=== PATIENT | male | born 1955 | race Hispanic/Latino ===

== ENCOUNTER 2020-07-21 10:34 | Emergency (ER) | payer BC, OTHER ==
[~2020-07-21] VITALS: Ht 165.1 cm; Wt 95.3 kg
[~2020-07-21 10:34] MED LIST: METOPROLOL TART25 MG PO
[2020-07-21] MEDS ORDERED: HYDROCODONE/APAP 5MG-325MG TAB PO NR (11:00)
[2020-07-21] MEDS ORDERED: DIAZEPAM 2 MG TAB PO NR (11:00)
--- NOTE | 2020-07-21 11:07 | Emergency Department Note ---
History of Present Illnes History of Present Illness Chief Complaint: General Medicine Complaints History of Present Illness This is a 64 year old male X 2 WEEK INTERMITTENT THROBBING/TINGLING PAIN TO BACK OF HEAD ALONG WITH HEADACHE. RADIATES TO RIGHT SIDE OF NECK/SHOULDER. LAST APPROX 20 MIN. DENIES ANY TRAUMA HOT COMPRESSES HELP. MADE WORSE WITH TURNING HEAD FROM SIDE TO SIDE. PATIENT SEEN BY AT [facility]. X-RAY DONE, NORMAL. REQUESTED CT SCAN AND THEY WOULD NOT DO IT. GIVEN CYCLOBENZAPRINE 5 MG AND MELOXICAM 15 MG. PATIENT EVALUATED IN TRIAGE BY DR. HUDDLESTON. NEUROLOGICALLY INTACT. 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 Any updates have been documented here. Past Medical History Recent Fever: No Clinical Suspicion of Infectio: No New/Unexplained Change in Ment: No Past Medical History: Hypertension Other Surgery: KNEE SURGERY Social History Smoking Cessation: Never Smoker Counseling Performed: No Alcohol Use: None Any Illegal Drug Use: No TB Exposure/Symptoms: No Physically hurt or threatened: No Family History Family history of heart diseas: No Other Any Pre-Existing Lines (PICC,: No Review of Systems Review of Systems Constitutional: Reports no symptoms EENTM: Reports no symptoms Cardiovascular: Reports no symptoms Respiratory: Reports no symptoms Gastrointestinal: Reports no symptoms Genitourinary: Reports no symptoms Musculoskeletal: Reports as per HPI, Reports muscle stiffness, Reports neck pain Integumentary: Reports no symptoms Neurological: Reports as per HPI, Reports headache Psychological: Reports no symptoms Endocrine: Reports no symptoms Hematological/Lymphatic: Reports no symptoms Review of other systems: All other systems negative Physical Exam Related Data Allergies: Coded Allergies: No Known Allergies (Unverified , 07/21/20) Triage Vital Signs Vital Signs Date Time Temp Pulse Resp B/P (MAP) Pulse Ox O2 Delivery O2 Flow Rate FiO2 07/21/20 10:37 98.1 67 18 195/89 97 Room Air Vital signs reviewed: Yes Physical Exam CONSTITUTIONAL Constitutional: Present well-developed, Present well-nourished HENT HENT: Present normocephalic, Present atraumatic, Present oropharynx clear/moist, Present nose normal HENT L/R: Present left ext ear normal, Present right ext ear normal EYES Eyes: Reports PERRL, Reports conjunctivae normal NECK Neck: Present ROM normal, Present other (MUSCLE SPASM/TENDERNESS OF RIGHT TRAPEZEUS MUSCLE INCLUDING AT INSERTION AT RIGHT OCCIPUT) PULMONARY Pulmonary: Present effort normal, Present breath sounds normal CARDIOVASCULAR Cardiovascular: Present regular rhythm, Present heart sounds normal, Present capillary refill normal, Present normal rate GASTROINTESTINAL Abdominal: Present soft, Present nontender, Present bowel sounds normal GENITOURINARY Genitourinary: Present exam deferred SKIN Skin: Present warm, Present dry MUSCULOSKELETAL Musculoskeletal: Present ROM normal NEUROLOGICAL Neurological: Present alert, Present oriented x 3, Present DTRs normal, Present no gross motor or sensory deficits; Absent cranial nerve deficit, Absent sensory deficit, Absent abnormal gait, Absent weakness PSYCHOLOGICAL Psychological: Present mood/affect normal, Present judgement normal Results Imaging Imaging results reviewed: Yes Impressions Procedure: [id number] CT/CT BRAIN WO Exam Date: 07/21/20 Exam Time: 1126 REPORT STATUS: Draft History: 64-year-old male with headaches x2-3 weeks, radiates to right side of neck/shoulder, last approximately 20 minutes, denies trauma, elevated blood pressure Comparison studies: None Technique: Axial images were obtained from the skull base to the vertex. Coronal and sagittal reconstructions obtained from the axial data. Dose modulation, iterative reconstruction, and/or weight based adjustment of the mA/kV was utilized to reduce the radiation dose to as low as reasonably achievable. Intravenous contrast: None Findings: Scalp/skull: No abnormalities. No fractures, blastic or lytic lesions. Extra-axial spaces: No masses. No fluid collections. Brain sulci: Appropriate for age. Ventricles: Normal in size and configuration. No hydrocephalus. Parenchyma: Scattered hypodensities in the supratentorial white matter are small vessel ischemic changes. Otherwise no abnormal densities. No masses, hemorrhage, acute or chronic cortical vascular insults. Sellar/suprasellar region: No abnormalities Craniocervical junction: Patent foramen magnum. No Chiari one malformation. Incidental findings: Moderate paranasal sinus mucosal thickening of the ethmoid and sphenoid sinuses bilaterally with inspissated secretions of the left sphenoid sinus. IMPRESSION: 1. No acute intracranial abnormalities. 2. Moderate paranasal sinus disease with inspissated secretions in the left sphenoid sinus. No air-fluid levels to suggest acute sinusitis. Chronic findings: * Mild chronic microvascular ischemic changes. Dictated By: TRISTEN BELTRAN DO Assessment & Plan Medical Decision Making MDM PT C/O HEADACHE AND RIGHT NECK PAIN. PE C/W TRAPEZIUS MUSCLE SPASM BUT PT WANTS CT - CHECK CT BRAIN R/O CEREBRAL BLEED, MASS Reassessment Reassessment DC HOME, VALIUM 5 MG TID PRN, NO OPERATING MACHINERY/DRIVING WHILE TAKING, WARM HEAT COMPRESSES Assessment & Plan Final Impression: (1) Muscle spasm Depart Disposition: HOME, SELF-CARE Last Vital Signs Date Time Temp Pulse Resp B/P (MAP) Pulse Ox O2 Delivery O2 Flow Rate FiO2 07/21/20 10:37 98.1 67 18 195/89 97 Room Air Home Meds Reported Medications Metoprolol Tartrate (METOPROLOL TARTRATE) 25 Mg Tablet, 25 MG PO BID, TAB 05/29/16 Medications in the ED Acetaminophen/ Hydrocodone Bitart 1 ea ONCE ONCE PO ; Start 07/21/20 at 11:00; Stop 07/21/20 at 11:01; Status UNV Diazepam 5 mg ONCE ONCE PO ; Start 07/21/20 at 11:00; Stop 07/21/20 at 11:01; Status UNV CHASITY HUDDLESTON MD Jul 21, 2020 11:07
--- NOTE | 2020-07-21 11:51 | Diagnostic Imaging Report ---
History: 64-year-old male with headaches x2-3 weeks, radiates to right side of neck/shoulder, last approximately 20 minutes, denies trauma, elevated blood pressure Comparison studies: None Technique: Axial images were obtained from the skull base to the vertex. Coronal and sagittal reconstructions obtained from the axial data. Dose modulation, iterative reconstruction, and/or weight based adjustment of the mA/kV was utilized to reduce the radiation dose to as low as reasonably achievable. Intravenous contrast: None Findings: Scalp/skull: No abnormalities. No fractures, blastic or lytic lesions. Extra-axial spaces: No masses. No fluid collections. Brain sulci: Mildly prominent. Ventricles: Normal in size and configuration. No hydrocephalus. Parenchyma: A few scattered hypodensities in the supratentorial white matter are nonspecific but are most compatible with small vessel ischemic changes. No masses, acute hemorrhage, acute or chronic cortical vascular insults. Sellar/suprasellar region: No abnormalities Craniocervical junction: Patent foramen magnum. No Chiari one malformation. Included paranasal sinuses: Scattered mucosal thickening throughout the paranasal sinuses which are partially opacified. The partially opacified left sphenoid sinus contains nonspecific secretions. IMPRESSION: 1. No acute intracranial abnormalities. 2. Mild chronic microvascular ischemic changes. 3. Nonspecific inflammatory changes in the paranasal sinuses. Signed by: Dr. Jeronimo Alcantara M.D. on 07/21/2020 12:53 PM
[2020-07-21 12:22] VITALS: BP 155/72
--- OUTSIDE RECORDS SUMMARY | 2020-07-26 18:20 | XMS REPORT | Clinical Summary ---
Author Author [facility] Organization [facility] Address Unknown Phone Unavailable Care Team Providers Care Wigs Salesperson Name Role Phone Asked, No Pcp PCP Unavailable Allergies No Known Active Allergies Medications End Date Status Medication Sig Dispensed Refills Start Date 07/24/2019 fluticasone propionate 1 spray (50 16 g 0 (FLONASE) 50 mcg total) by 9 mcg/actuation nasal spray Each Nare route daily for 14 days. 08/09/2019 sodium chloride (OCEAN 1 spray into 15 mL 12 NASAL) 0.65 % nasal spray each nostril 9 as needed for congestion or rhinitis for up to 30 days. 08/09/2019 cetirizine (ZyrTEC) 10 MG Take 1 tablet 30 tablet 0 tablet (10 mg total) 9 by mouth daily for 30 days. Active Problems Not on file Surgical History Surgery Date Site/Laterality Comments APPENDECTOMY REPLACEMENT TOTAL KNEE Right UMBILICAL HERNIA REPAIR Medical History Medical History Date Comments Hypertension Social History Date Tobacco Use Types Packs/Day Years Used Never Smoker Smokeless Tobacco: Never Used Drinks/Week oz/Week Comments Alcohol Use Not Currently Sex Assigned at Date Recorded Not on file Last Filed Vital Signs Not on file Plan of Treatment Health Maintenance Due Date Last Done Comments COLONOSCOPY SCREENING 2006 SHINGLES VACCINES (#1) 2006 INFLUENZA VACCINE 04/21/2020 Results Not on fileafter 07/21/2019 Insurance Type Payer Benefit Subscriber ID Effective Phone Address Plan / Dates Group PPO BCBS BCBS OUT [id number] 2018- OF STATE Present Advance Directives For more information, please contact: [phone] Patient Medical Affairs Specialist Explanation Type Date Recorded Advance Directives, 07/10/2019 12:03 PM Living Will and Medical Power of Physician Advisor
--- OUTSIDE RECORDS SUMMARY | 2020-07-26 18:20 | XMS REPORT | Continuity of Care Document ---
Author Author [facility] Organization [facility] Address [address] [place] [address] Phone Unavailable Care Team Providers Care Wire Fence Erector Name Role Phone Asked, Pcp No PCP Unavailable SWEET, A LAIRD Attphys Unavailable WINGKUN, STANISLAV-EILEEN Attphys Unavailable MARCANTEL, MISTY Attphys Unavailable Payers Payer Name Policy Type Policy Number Effective Date Expiration Date S ource Problems This patient has no known problems. Allergies, Adverse Reactions, Alerts Allergy Name Allergy Type Status Severity Reaction(s) Onset Date Inacti ve Date Treating Clinician Comments Source No Known Allergies DA Active U 2019-07-12 00:[facility] Social History Social Habit Start Date Stop Date Quantity Comments Source Sex Assigned At Akin maddoxstanton Vu Tobacco use and exposure 2019-07-10 00:00:00 2019-07-10 00:00:00 Neelam molina used Ramez Vu Alcohol intake 2019-07-10 00:00:00 2019-07-10 00:00:00 Ex-drinker (fi nding) Ramez Vu Smoking Status Start Date Stop Date Source Never smoker Ramez kim Medications Ordered Medication Name Filled Medication Name Start Date Stop Da te Current Medication? Ordering Clinician Indication Dosage Frequency Signature (SIG) Comments Components Source sodium chloride (OCEAN NASAL) 0.65 % nasal spray 2019-07-10 00:00:00 2019-08-09 23:59:00 No 1{spray} 1 spr ay into each nostril as needed for congestion or rhinitis for up to 30 days. Ramez Vu cetirizine (ZyrTEC) 10 MG tablet 2019-07-10 00:00:00 2019-07 23:59:00 No 10mg QD Take 1 tablet (10 mg total) by mouth daily for 30 days. Ramez Vu fluticasone propionate (FLONASE) 50 mcg/actuation nasal spra y 2019-07-10 00:00:00 2019-07-24 23:59:00 No 50ug QD 1 spray (50 mcg total) by Each Nare route daily for 14 days. Ramez Cheney Procedures This patient has no known procedures. Plan of Care Planned Activity Planned Date Details Comments Source Future Scheduled Test 2020-04-21 00:00:00 INFLUENZA VACCINE [code = INFLUENZA VACCINE] Ramez Vu Future Scheduled Test 2006 00:00:00 COLONOSCOPY SCREEN ING [code = COLONOSCOPY SCREENING] Ramez Vu Future Scheduled Test 2006 00:00:00 SHINGLES VACCINES (#1) [code = SHINGLES VACCINES (#1)] Ramez Vu Encounters Start Date/Time End Date/Time Encounter Type Admission Type [facility] Care Department Encounter ID Source 2019-07-10 00:00:00 2019-07-10 00:00:00 Emergency [facility] [id number] Ramez Vu 2019-07-10 00:00:00 2019-07-10 00:00:00 Emergency [facility] [id number] Ramez Vu Results Test Description Test Time Test Comments Results Result Comments Source CT BRAIN WO 2020-07-21 11:44:00 [facility] : 1955 Sex: M [facility] [address] [address] Patient Name: CE MERCHANT MR #: [id number] : 1955 Age/Sex: 64/M Req #: [id number] Adm Physician: Ordered by: CHASITY HUDDLESTON MD Report #: [id number] Location: ER Room/Bed: Procedure: [id number] CT/CT BRAIN WO Exam Date: 07/21/20 Exam Time: 1126 REPORT STATUS: Signed History: 64-year-old male with headaches x2-3 weeks, radiates to right side of neck/shoulder, last approximately 20 minutes, denies trauma, elevated blood pressure Comparison studies: None Technique: Axial images were obtained from the skull base to the vertex. Coronal and sagittal reconstructions obtained from the axial data. Dose modulation, iterative reconstruction, and/or weight based adjustment of the mA/kV was utilized to reduce the radiation dose to as low as reasonably achievable. Intravenous contrast: None Findings: Scalp/skull: No abnormalities. No fractures, blastic or lytic lesions. Extra-axial spaces: No masses. No fluid collections. Brain sulci: Mildly prominent. Ventricles: Normal in size and configuration. No hydrocephalus. Parenchyma: A few scattered hypodensities in the supratentorial white matter are nonspecific but are most compatible with small vessel ischemic changes. No masses, acute hemorrhage, acute or chronic cortical vascular insults. Sellar/suprasellar region: No abnormalities Craniocervical junction: Patent foramen magnum. No Chiari one malformation. Included paranasal sinuses: Scattered mucosal thickening throughout the paranasal sinuses which are partially opacified. The partially opacified left sphenoid sinus contains nonspecific secretions. IMPRESSION: 1. No acute intracranial abnormalities. 2. Mild chronic microvascular ischemic changes. 3. Nonspecific inflammatory changes in the paranasal sinuses. Signed by: Dr. Sachin Alcantara M.D. on 07/21/2020 12:53 PM Dictated By: SACHIN ALCANTARA MD 52 Transcribed By: JULIÁN on 07/21/201252 COPY TO: CHASITY HUDDLESTON MD BASIC METABOLIC PANEL 2019-07-15 08:10:00 Test Item SODIUM (test code = NA) 138 mEq/L 134-147 N POTASSIUM (test code = K) 3.6 mEq/L 3.4-5.0 N CHLORIDE (test code = CL) 105 mEq/L 100-108 N CARBON DIOXIDE (test code = CO2) 25 mEq/L 21-33 N ANION GAP (test code = GAP) 12 0-20 N GLUCOSE (test code = GLU) 98 mg/dL 70-110 N BLOOD UREA NITROGEN (test code = BUN) 11 mg/dL 7-18 GLOMERULAR FILTRATION RATE (test code = GFR) 114.3 80-90 H Units of measure = ml/min/1.73 m2 CREATININE (test code = CREAT) 0.7 mg/dL 0.6-1.3 N CALCIUM (test code = CA) 8.0 mg/dL 8.0-10.5 N CBC W/AUTO [id number] 08:06:00* Test Item Value Reference Range Interpretation Comments WHITE BLOOD CELL (test code = WBC) 16.76 x10 3/uL 4.5-11.0 H RED BLOOD CELL (test code = RBC) 3.85 x10 6/uL 4.00-5.60 L HEMOGLOBIN (test code = HGB) 11.2 g/dL 12.5-16.9 L HEMATOCRIT (test code = HCT) 34.8 % 37.5-50.7 L MEAN CELL VOLUME (test code = MCV) 90.4 fL 81.0-99.0 N MEAN CELL HGB (test code = MCH) 29.1 pg 27.0-33.0 N MEAN CELL HGB CONCETRATION (test code = MCHC) 32.2 g/dL 33.0-37. 0 L RED CELL DISTRIBUTION WIDTH CV (test code = RDW) 14.6 % 11.5- 14.5 H RED CELL DISTRIBUTION WIDTH SD (test code = RDW-SD) 49.1 fL 37 .0-54.0 N PLATELET COUNT (test code = PLT) 202 x10 3/uL 150-400 N MEAN PLATELET VOLUME (test code = MPV) 12.0 fL 7.0-9.0 H NEUTROPHIL % (test code = NT%) 79.4 % 56.0-77.0 H IMMATURE GRANULOCYTE % (test code = IG%) 1.3 % 0.0-2.0 N LYMPHOCYTE % (test code = LY%) 10.4 % 14.0-32.0 L MONOCYTE % (test code = MO%) 7.5 % 4.8-9.0 N EOSINOPHIL % (test code = EO%) 1.0 % 0.3-3.7 N BASOPHIL % (test code = BA%) 0.4 % 0.0-2.0 N NUCLEATED RBC % (test code = NRBC%) 0.0 % 0-0 N NEUTROPHIL # (test code = NT#) 13.32 x10 3/uL 2.0-7.6 H IMMATURE GRANULOCYTE # (test code = IG#) 0.21 x10 3/uL 0.00-0.03 H LYMPHOCYTE # (test code = LY#) 1.75 x10 3/uL 1.0-3.8 N MONOCYTE # (test code = MO#) 1.25 x10 3/uL 0.1-0.8 H EOSINOPHIL # (test code = EO#) 0.17 x10 3/uL 0.0-0.2 N BASOPHIL # (test code = BA#) 0.06 x10 3/uL 0.0-0.2 N NUCLEATED RBC # (test code = NRBC#) 0.00 x10 3/uL 0.0-0.1 N MANUAL DIFF REQUIRED (test code = MDIFF) NO CBC W/AUTO [id number] 07:53:00* Test Item Value Reference Range Interpretation Comments WHITE BLOOD CELL (test code = WBC) 17.10 x10 3/uL 4.5-11.0 H RED BLOOD CELL (test code = RBC) 3.84 x10 6/uL 4.00-5.60 L HEMOGLOBIN (test code = HGB) 11.3 g/dL 12.5-16.9 L HEMATOCRIT (test code = HCT) 35.1 % 37.5-50.7 L MEAN CELL VOLUME (test code = MCV) 91.4 fL 81.0-99.0 N MEAN CELL HGB (test code = MCH) 29.4 pg 27.0-33.0 N MEAN CELL HGB CONCETRATION (test code = MCHC) 32.2 g/dL 33.0-37. 0 L RED CELL DISTRIBUTION WIDTH CV (test code = RDW) 14.5 % 11.5- 14.5 N RED CELL DISTRIBUTION WIDTH SD (test code = RDW-SD) 48.3 fL 37 .0-54.0 N PLATELET COUNT (test code = PLT) 183 x10 3/uL 150-400 N MEAN PLATELET VOLUME (test code = MPV) 11.7 fL 7.0-9.0 H NEUTROPHIL % (test code = NT%) 77.7 % 56.0-77.0 H IMMATURE GRANULOCYTE % (test code = IG%) 0.6 % 0.0-2.0 N LYMPHOCYTE % (test code = LY%) 8.5 % 14.0-32.0 L MONOCYTE % (test code = MO%) 12.5 % 4.8-9.0 H EOSINOPHIL % (test code = EO%) 0.4 % 0.3-3.7 N BASOPHIL % (test code = BA%) 0.3 % 0.0-2.0 N NUCLEATED RBC % (test code = NRBC%) 0.0 % 0-0 N NEUTROPHIL # (test code = NT#) 13.30 x10 3/uL 2.0-7.6 H IMMATURE GRANULOCYTE # (test code = IG#) 0.10 x10 3/uL 0.00-0.03 H LYMPHOCYTE # (test code = LY#) 1.45 x10 3/uL 1.0-3.8 N MONOCYTE # (test code = MO#) 2.14 x10 3/uL 0.1-0.8 H EOSINOPHIL # (test code = EO#) 0.06 x10 3/uL 0.0-0.2 N BASOPHIL # (test code = BA#) 0.05 x10 3/uL 0.0-0.2 N NUCLEATED RBC # (test code = NRBC#) 0.00 x10 3/uL 0.0-0.1 N MANUAL DIFF REQUIRED (test code = MDIFF) NO BASIC METABOLIC [id number] 07:43:00* Test Item Value Reference Range Interpretation Comments SODIUM (test code = NA) 135 mEq/L 134-147 N POTASSIUM (test code = K) 3.4 mEq/L 3.4-5.0 N CHLORIDE (test code = CL) 102 mEq/L 100-108 N CARBON DIOXIDE (test code = CO2) 24 mEq/L 21-33 N ANION GAP (test code = GAP) 12 0-20 N GLUCOSE (test code = GLU) 110 mg/dL 70-110 N BLOOD UREA NITROGEN (test code = BUN) 8 mg/dL 7-18 GLOMERULAR FILTRATION RATE (test code = GFR) 114.3 80-90 H Units of measure = ml/min/1.73 m2 CREATININE (test code = CREAT) 0.7 mg/dL 0.6-1.3 N CALCIUM (test code = CA) 7.9 mg/dL 8.0-10.5 L BASIC METABOLIC [id number] 05:37:00* Test Item Value Reference Range Interpretation Comments SODIUM (test code = NA) 132 mEq/L 134-147 L POTASSIUM (test code = K) 3.8 mEq/L 3.4-5.0 N CHLORIDE (test code = CL) 100 mEq/L 100-108 N CARBON DIOXIDE (test code = CO2) 27 mEq/L 21-33 N ANION GAP (test code = GAP) 9 0-20 N GLUCOSE (test code = GLU) 128 mg/dL 70-110 H BLOOD UREA NITROGEN (test code = BUN) 12 mg/dL 7-18 N GLOMERULAR FILTRATION RATE (test code = GFR) 85.5 80-90 N Units of measure = ml/min/1.73 m2 CREATININE (test code = CREAT) 0.9 mg/dL 0.6-1.3 N CALCIUM (test code = CA) 8.2 mg/dL 8.0-10.5 N CBC W/AUTO [id number] 04:34:00* Test Item Value Reference Range Interpretation Comments WHITE BLOOD CELL (test code = WBC) 15.89 x10 3/uL 4.5-11.0 H RED BLOOD CELL (test code = RBC) 4.45 x10 6/uL 4.00-5.60 N HEMOGLOBIN (test code = HGB) 12.8 g/dL 12.5-16.9 N HEMATOCRIT (test code = HCT) 39.9 % 37.5-50.7 N MEAN CELL VOLUME (test code = MCV) 89.7 fL 81.0-99.0 N MEAN CELL HGB (test code = MCH) 28.8 pg 27.0-33.0 N MEAN CELL HGB CONCETRATION (test code = MCHC) 32.1 g/dL 33.0-37. 0 L RED CELL DISTRIBUTION WIDTH CV (test code = RDW) 14.0 % 11.5- 14.5 N RED CELL DISTRIBUTION WIDTH SD (test code = RDW-SD) 46.6 fL 37 .0-54.0 N PLATELET COUNT (test code = PLT) 154 x10 3/uL 150-400 N MEAN PLATELET VOLUME (test code = MPV) 10.8 fL 7.0-9.0 H NEUTROPHIL % (test code = NT%) 75.9 % 56.0-77.0 N IMMATURE GRANULOCYTE % (test code = IG%) 0.8 % 0.0-2.0 N LYMPHOCYTE % (test code = LY%) 8.6 % 14.0-32.0 L MONOCYTE % (test code = MO%) 14.1 % 4.8-9.0 H EOSINOPHIL % (test code = EO%) 0.2 % 0.3-3.7 L BASOPHIL % (test code = BA%) 0.4 % 0.0-2.0 N NUCLEATED RBC % (test code = NRBC%) 0.0 % 0-0 N NEUTROPHIL # (test code = NT#) 12.08 x10 3/uL 2.0-7.6 H IMMATURE GRANULOCYTE # (test code = IG#) 0.12 x10 3/uL 0.00-0.03 H LYMPHOCYTE # (test code = LY#) 1.36 x10 3/uL 1.0-3.8 N MONOCYTE # (test code = MO#) 2.24 x10 3/uL 0.1-0.8 H EOSINOPHIL # (test code = EO#) 0.03 x10 3/uL 0.0-0.2 N BASOPHIL # (test code = BA#) 0.06 x10 3/uL 0.0-0.2 N NUCLEATED RBC # (test code = NRBC#) 0.00 x10 3/uL 0.0-0.1 N MANUAL DIFF REQUIRED (test code = MDIFF) NO
== END 2020-07-21 12:23 | disposition home or self-care (01) ==
LOC: ER 11:28
DX: M62.838 Other muscle spasm (principal); R51.9 Headache, unspecified; M54.2 Cervicalgia; I10 Essential (primary) hypertension
CPT/HCPCS: 70450; 99283

== ENCOUNTER 2020-10-01 12:18 | Emergency (ER) | payer BC ==
[~2020-10-01] VITALS: Ht 165.1 cm; Wt 95.3 kg
[2020-10-01] MEDS ORDERED: KETOROLAC TROMETHAMINE 30 MG/ML VIAL IV STA (12:39)
[2020-10-01 14:24] VITALS: BP 206/92
== END 2020-10-01 14:24 | disposition home or self-care (01) ==
LOC: ER 12:45
DX: M25.512 Pain in left shoulder (principal); X50.1XXA Overexertion from prolonged static or awkward postures, initial encounter; Y92.89 Other specified places as the place of occurrence of the external cause; I10 Essential (primary) hypertension
CPT/HCPCS: 73030; 73060; 99283; J1885

== ENCOUNTER 2021-09-08 09:16 | Emergency (ER) | payer BC ==
[~2021-09-08] VITALS: Ht 165.1 cm; Wt 95.3 kg
[2021-09-08 10:13] LABS: BASOPHILS # (AUTO) 0.1 (0.0-0.1); BASOPHILS % 0.7 % (0.0-1.0); EOSINOPHILS # (AUTO) 0.7 (0.0-0.4); EOSINOPHILS % 6.2 % (0.0-6.0); HEMOGLOBIN 15.6 g/dL (14.0-18.0); LYMPHOCYTES # (AUTO) 1.9 (1.0-3.2); LYMPHOCYTES % 17.4 % (18.0-39.1); MEAN CORPUSCULAR HGB CONC 33.2 g/dL (31-35); MEAN CORPUSCULAR VOLUME 90.4 fL (81-99); MONOCYTES # (AUTO) 0.8 (0.2-0.8); MONOCYTES % 7.1 % (4.4-11.3); NEUTROPHILS # (AUTO) 7.5 (2.1-6.9); NEUTROPHILS % 68.3 % (38.7-80.0); PLATELET COUNT 203 x10e3/uL (140-360); RED CELL DISTRIBUTION WIDTH 13.8 % (11.7-14.4)
[2021-09-08 10:22] LABS: INR 0.96; PARTIAL THROMBOPLASTIN TIME 29.1 seconds (23.8-35.5); PROTHROMBIN TIME 13.6 seconds (11.9-14.5)
[2021-09-08] MEDS ORDERED: DEXAMETHASONE SOD PHOS 10 MG/1 ML VIAL IV ONE (10:30)
[2021-09-08 10:32] LABS: ALANINE AMINOTRANSFERASE 19 IU/L (0-55); ALBUMIN 4.1 g/dL (3.5-5.0); ALBUMIN/GLOBULIN RATIO 1.1 (0.8-2.0); ALKALINE PHOSPHATASE 119 IU/L (40-150); ANION GAP 16.2 mmol/L (8-16); BLOOD UREA NITROGEN 15 mg/dL (7-26); BUN/CREATININE RATIO 19 (6-25); CARBON DIOXIDE 28 mmol/L (22-29); CHLORIDE 98 mmol/L (98-107); CREATINE KINASE 199 IU/L (30-200); CREATININE, SERUM 0.78 mg/dL (0.72-1.25); EST GLOMERULAR FILTRATION RATE 100 ML/MIN (60-); GLUCOSE 118 mg/dL (74-118); MAGNESIUM 1.9 MG/DL (1.3-2.1); POTASSIUM 3.2 mmol/L (3.5-5.1); SODIUM 139 mmol/L (136-145)
[2021-09-08] MEDS ORDERED: ALBUTEROL/IPRATROPIUM 3 ML NEB NEB ONE (12:15)
[2021-09-08 12:44] VITALS: BP 133/58
== END 2021-09-08 12:45 | disposition home or self-care (01) ==
LOC: ER 09:43
DX: R05.9 Cough, unspecified (principal); J40 Bronchitis, not specified as acute or chronic; I10 Essential (primary) hypertension; E78.5 Hyperlipidemia, unspecified; Z20.822 Contact with and (suspected) exposure to COVID-19
CPT/HCPCS: 36415; 71045; 80053; 82550; 82553; 83735; 83880; 84484; 85025; 85610; 85730; 87040; 93005; 99284; J1100; U0002

== ENCOUNTER 2022-08-02 04:37 | Emergency (ER) | payer BC, OTHER ==
[~2022-08-02] VITALS: Ht 165.1 cm; Wt 95.3 kg
[2022-08-02] MEDS ORDERED: ALBUTEROL/IPRATROPIUM 3 ML NEB NEB ONE (06:30)
[2022-08-02] MEDS ORDERED: ACETAMINOPHEN 325 MG TAB PO ONE (07:15)
[2022-08-02] MEDS ORDERED: AZITHROMYCIN250 MG PO (07:20)
[2022-08-02] MEDS ORDERED: PREDNISONE20 MG PO (07:20)
[2022-08-02 07:24] VITALS: BP 149/68
[2022-08-02] MEDS ORDERED: PROVENTIL HFA6.7 GM INH (07:30)
[2022-08-02] MEDS ORDERED: PREDNISONE 20 MG TAB PO ONE (07:30)
== END 2022-08-02 07:35 | disposition home or self-care (01) ==
LOC: ER 04:43
DX: R05.9 Cough, unspecified (principal); J40 Bronchitis, not specified as acute or chronic; J06.9 Acute upper respiratory infection, unspecified; Z20.822 Contact with and (suspected) exposure to COVID-19
CPT/HCPCS: 71045; 87400; 99283; U0002